=== PATIENT | male | born 1990 | race Caucasian/White ===

== ENCOUNTER 2019-09-15 14:23 | Emergency (ER) | payer BC ==
[~2019-09-15] VITALS: Ht 177.8 cm; Wt 81.6 kg
[2019-09-15 15:00] VITALS: BP 156/88
--- NOTE | 2019-09-15 17:54 | PHYS DOC ---
Past Medical History Past Medical History: Anxiety, Depression, GERD, Hypertension Additional Past Medical Histor: insomnia Past Surgical History: Tonsillectomy Alcohol Use: Occasionally Drug Use: None Adult General Chief Complaint Chief Complaint: HYPERTENSION HPI HPI Patient is a 28 year old with history of anxiety, depression and GERD who presents with report of elevated blood pressure while at work. Patient states he is routinely taking his blood pressure which was elevated at 200/100. Patient works as a tech in a psychiatric facility. He was referred to ED for further evaluation. Patient denies headache, dizziness, palpitations shortness of breath. States he has had increased stress and recently was diagnosed with hypertension by his student clinic medical provider. He is currently taking hydrochlorothiazide daily and is compliant with treatment. He is recently changed on antidepressants but states symptoms began prior to sainz changes. No other acute symptoms or complaints. [] Review of Systems Review of Systems Review of symptoms as per history of present illness. All other review symptoms are negative. All other systems were reviewed and found to be within normal limits, except as documented in this note. Allergies Allergies Allergies Coded Allergies Type Severity Reaction Last Updated Verified No Known Drug Allergies 09/15/19 No Physical Exam Physical Exam Constitutional: Well developed, well nourished, anxious. [] HENT: Normocephalic, atraumatic, bilateral external ears normal, oropharynx moist, no oral exudates, nose normal. [] Eyes: PERRLA, EOMI, conjunctiva normal, no discharge. [] Neck: Normal range of motion, no tenderness, supple, no stridor. [] Cardiovascular:Heart rate regular rhythm, no murmur [] Lungs & Thorax: Bilateral breath sounds clear to auscultation [] Abdomen: Bowel sounds normal, soft, no tenderness. [] Skin: Warm, dry, no erythema. [] Back: No tenderness, no CVA tenderness. [] Extremities: No tenderness,no edema. [] Neurologic: Alert and oriented X 3, normal motor function, normal sensory function, no focal deficits noted. [] Current Patient Data Vital Signs Vital Signs Date Time Temp Pulse Resp B/P (MAP) Pulse Ox O2 Delivery O2 Flow Rate FiO2 09/15/19 15:00 104 16 98 09/15/19 14:30 98.5 179/97 (124) Room Air 98.5 EKG EKG [EKG: Sinus tach, rate 116, no acute ST-T wave changes, QTC 420.] Radiology/Procedures Radiology/Procedures [] Course & Med Decision Making Course & Med Decision Making Pertinent Labs and Imaging studies reviewed. (See chart for details) [Blood pressure, heart raite anxiety improved with reassurance. Recommend discharge home with rest daily monitor blood pressure, watchful waiting and PCP follow-up next week. Work excuse provided. No other imaging or testing indicated at this time. Term precautions reviewed. ] Dragon Disclaimer Dragon Disclaimer This electronic medical record was generated, in whole or in part, using a voice recognition dictation system. Departure Departure Impression: Primary Impression: Accelerated hypertension Additional Impression: Anxiety state Disposition: 01 HOME, SELF-CARE Condition: GOOD Referrals: NO PCP (PCP) Patient Instructions: Hypertension, [id number] Additional Instructions: Check blood pressure in the morning daily and follow up with your PCP for further management of your blood pressure. Return to the ED if new or worsening symptoms. Problem Qualifiers NIKA POWER DO Sep 15, 2019 17:54
--- NOTE | 2019-09-17 13:56 | EKG ---
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
== END 2019-09-15 15:15 | disposition home or self-care (01) ==
LOC: ER 14:23
DX: I10 Essential (primary) hypertension (principal); F41.9 Anxiety disorder, unspecified; F32.9 Major depressive disorder, single episode, unspecified; K21.9 Gastro-esophageal reflux disease without esophagitis
CPT/HCPCS: 93005; 99283

== ENCOUNTER 2021-10-25 12:51 | Emergency (ER) | payer SELFPAY | END 2021-10-25 15:00 | disposition left against medical advice (07) | LOC: ER 12:51 | DX: R22.42 Localized swelling, mass and lump, left lower limb (principal); Z53.21 Procedure and treatment not carried out due to patient leaving prior to being seen by health care provider ==